=== PATIENT | female | born 1930 | race Caucasian/White ===

== ENCOUNTER → 2016-06-03 | Outpatient (CLI) | payer BC ==
[~2016-06-03] MED LIST: ACET325T96 PO; ACET650S10 RE; ACET650S11 PR; AMLO-110 PO; AMOX500C3 PO; ASPI325T39 PO; ATOR-54 PO; ATV5X PO; B-COTAB18 PO; BISA10SU7 PR; CHOL1CAP57 PO; CYAN100020 PO; GUAI100S75 PO; IMD/2 PO; LEVO125T4 PO; LISI-461 PO; MAGN400T6 PO; MOML PO; ONDA4TAB9 PO; POTA-327 PO; SERT25TA PO; SODIENE PR; SULF800T23 PO; SYMIN160 INH; TPRSR100 PO; ZLF/50 PO
== END ==
LOC: C.LABFOXDH 13:00
PROVIDERS: ATTEND Internal Medicine
DX: F44.89 Other dissociative and conversion disorders (principal); N32.89 Other specified disorders of bladder

== ENCOUNTER 2016-06-05 14:06 | Emergency (ER) | payer BC ==
[~2016-06-05] VITALS: Ht 165.1 cm; Wt 86.5 kg
[~2016-06-05 14:06] MED LIST changes: -ACET650S10 RE; -ACET650S11 PR; -AMLO-110 PO; -AMOX500C3 PO; -ASPI325T39 PO; -ATV5X PO; -B-COTAB18 PO; -BISA10SU7 PR; -CHOL1CAP57 PO; -CYAN100020 PO; -IMD/2 PO; -LISI-461 PO; -MOML PO; -ONDA4TAB9 PO; -SODIENE PR; -SULF800T23 PO; -ZLF/50 PO
[2016-06-05 14:13] VITALS: TEMP 36.6; Ht 165.1 cm; Wt 86.5 kg
[2016-06-05 15:18] LABS: BASO % 0.5 %; BASO ABS # 0.06 K/uL (0-0.2); COMPLETE YES; EOS % 4.5 %; IG% 0.2 %; LYMPH % 5.3 %; LYMPH ABS # 0.65 K/uL (1.2-3.4); MEAN CELL VOLUME 83.3 fL (80-100); MEAN CORPUSCULAR HEMOGLOBIN 27.7 pg (25-34); MEAN CORPUSCULAR HGB CONC 33.2 g/dl (32-36); MEAN PLATELET VOLUME 10.7 fL (7.4-10.4); MONO % 9.5 %; PLATELET COUNT 272 K/uL (130-400); RED BLOOD COUNT 4.44 M/uL (4.2-5.4); WHITE BLOOD COUNT 12.18 K/uL (4.8-10.8)
[2016-06-05 15:33] LABS: URINE APPEARANCE CLEAR (CLEAR); URINE BILIRUBIN NEG (NEG); URINE COLOR DK YELLOW; URINE EPITHELIAL CELL AUTO 0-5 /lpf (0-5); URINE NITRITE POS (NEG); URINE SPECIFIC GRAVITY 1.023 (1.000-1.030); UROBILINOGEN NEG (NEG)
--- NOTE | 2016-06-05 15:34 | DIAGNOSTIC IMAGING REPORT ---
CT HEAD WITHOUT CONTRAST (CT) CLINICAL HISTORY: Head trauma. Increasing confusion. Unsteady gait. COMPARISON STUDY: 05/15/2016 TECHNIQUE: Axial CT of the brain is performed from the vertex to the skull base. IV contrast was not administered for this examination. CT DOSE: 601.98 mGy.cm FINDINGS: No intra or extra-axial mass lesions are visualized. There is no CT evidence of acute cortical infarction. There is no evidence of midline shift. There is no acute hemorrhage. No calvarial fractures are visualized. There are moderate white matter hypodensities likely on a small vessel basis. 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 There is no evidence of acute sinusitis. There are postsurgical changes within the cervical spine. IMPRESSION: No acute intracranial findings Electronically signed by: Dano Torres M.D. 06/05/2016 3:33 PM Dictated Date/Time: 06/05/2016 3:30 PM
[2016-06-05 15:35] LABS: MANUAL MICROSCOPIC REQUIRED? NO; REVIEW REQ? NO
[2016-06-05 15:38] LABS: BUN/CREATININE RATIO 19.5 (10-20); CALCIUM 9.3 mg/dl (8.5-10.1); CREATININE 0.83 mg/dl (0.60-1.20); POTASSIUM 4.2 mmol/L (3.5-5.1)
[2016-06-05] MEDS ORDERED: GUAI100S75 PO (16:30)
[2016-06-05] MEDS ORDERED: ZLF/50 PO (16:30)
[2016-06-05] MEDS ORDERED: ACET650S10 RE (16:30)
[2016-06-05] MEDS ORDERED: IMD/2 PO (16:30)
[2016-06-05] MEDS ORDERED: ATV5X PO (16:30)
[2016-06-05] MEDS ORDERED: ONDA4TAB9 PO (16:30)
--- NOTE | 2016-06-05 16:36 | EMERGENCY ROOM VISIT NOTE ---
ED Visit Note First contact with patient: 14:25 86-year-old female sent from local nursing facility was fully evaluated by Sanju Rivas PA-C. Please see his note. Multiple labs, imaging and urinalysis were obtained. Please see his note. The patient does appear to have a urinary tract infection. That will require treatment. I believe the patient is otherwise states return to the nursing facility. IMPRESSION: Urinary Tract Infection
[2016-06-05 17:18] VITALS: BP 144/74; PULSE 70; O2SAT 96
--- NOTE | 2016-06-05 18:44 | EMERGENCY ROOM VISIT NOTE ---
ED Visit Note First contact with patient: 14:25 Chief Complaint: Confusion and difficulty walking. History of Present Illness: Ms. Parrish is an 86-year-old white female who is brought into the ED from the [facility]. According to the paperwork sent by the nursing facility patient had increasing confusion and difficulty ambulating. There paperwork report fall on May 15 and again on June 04; she was seen after her May 15 fall in the ED and a CT scan was done and no other cranial abnormalities were noted. They report her symptoms of increasing confusion and difficulty ambulating has been increasing since her initial fall on May 15. No additional testing or studies were performed since that time. Currently patient is not sure why she was referred to the ED and only complains of intermittent dizziness when moving from the sitting to the standing position. She does not remember her fall from June 04, yesterday. She does not feel like she's been having any increasing confusion or difficulty ambulating. She denies headache, lightheadedness, visual changes, hearing changes, difficulty speaking, difficulty swallowing, difficulty coordinating body movements, neck pain, back pain, chest pain, palpitations, shortness of breath, abdominal pain, decreased appetite, nausea, vomiting, diarrhea, constipation, rectal bleeding, black/tarry stools, urinary symptoms, hematuria, extremity pain /weakness/numbness/tingling. Review of Systems: As noted above in history of present illness. All body systems were reviewed and found to be negative as noted above. Past Medical History: (1) Acute respiratory failure (2) Alcohol intoxication (3) Aortic Valve Disorder (4) COPD exacerbation (5) Diverticulitis (6) Frequent falls (7) Hypertension (8) Hypomagnesemia (9) Hypomagnesemia (10) Hypoxemia (11) Hypoxia (12) Syncopal episodes Current Medications: Medications Dose Route/Sig Max Daily Dose Days Date Category Dose Instructions Siltussin Sa (Guaifenesin) 100 Mg/5 Ml Syp 5 Ml PO Q4 PRN 06/05/16 Reported Imodium (Loperamide HCl) 2 Mg Cap 2 Mg PO Q4 PRN 06/05/16 Reported Ondansetron HCl (Ondansetron) 4 Mg Tab 4 Mg PO Q6 PRN 06/05/16 Reported Lorazepam 0.5 Mg Tab 0.5 Mg PO UD 06/05/16 Reported 1 HOUR PRIOR TO DENTIST APT. Tylenol (Acetaminophen) 650 Mg Supp 650 Mg RE Q4 PRN 06/05/16 Reported Sertraline HCl 50 Mg Tab 50 Mg PO DAILY 06/05/16 Reported Amoxil (Amoxicillin) 500 Mg Cap 2,000 Mg PO UD PRN 05/15/16 Reported TAKE 4 CAPSULES (2000 MG) ONE HOUR PRIOR TO DENTAL APPOINTMENT Fleet Enema (Sodium Phosphate/Biphosphate) [place] 1 Ea [place] UD PRN 05/15/16 Reported NEEDED EVERY 3 DAYS FOR NO BOWEL MOVEMENT AND NO RESULTS FROM MOM OR DULCOLAX SUPPOSITORY Milk Of Magnesia (Magnesium Hydroxide) 30 Ml Susp 30 Ml PO UD PRN 05/15/16 Reported NEEDED EVERY 2 DAYS FOR NO BOWEL MOVEMENT Bisac-Evac (Bisacodyl) 10 Mg Sup 10 Mg [place] UD PRN 05/15/16 Reported NEEDED IF NO RESULTS FROM MOM Tylenol Supp (Acetaminophen) 650 Mg Sup 650 Mg [place] Q4H PRN 05/15/16 Reported MAXIMUM 3 GM APAP/24 HOURS Vitamin B12 (Cyanocobalamin) 1,000 Mcg Tab 1,000 Mcg PO QAM 05/15/16 Reported Vitamin B Complex (B-Complex Vitamins) 1 Tab Tab 1 Tab PO QAM 05/15/16 Reported Zestril (Lisinopril) 10 Mg Tab 10 Mg PO QAM 05/15/16 Reported Norvasc (Amlodipine Besylate) 5 Mg Tab 5 Mg PO QAM 05/15/16 Reported Vitamin D3 (Cholecalciferol) 1,000 Unit Cap 1,000 Inter.unit PO QAM 05/15/16 Reported Aspirin Ec (Aspirin) 325 Mg Tab 325 Mg PO QAM 05/15/16 Reported Tylenol (Acetaminophen) 325 Mg Tab 650 Mg PO Q4H PRN 03/31/15 Reported MAXIMUM 3 GM APAP/24 HOURS Klor-Con (Potassium Chloride) 10 Meq Tabcr 10 Meq PO QAM 03/31/15 Reported Mag-Ox (Magnesium Oxide) 400 Mg Tab 400 Mg PO QAM 03/31/15 Reported Symbicort 160/4.5 Inhaler (Budesonide/Formoterol Fumarate) 120 Puffs/ Aero 2 Puffs INH QAM 02/03/14 Reported Toprol Xl (Metoprolol Succinate) 100 Mg Tabcr 100 Mg PO QAM 02/03/14 Reported Levothyroxine Sodium 125 Mcg Tab 125 Mcg PO QAM 02/03/14 Reported Lipitor (Atorvastatin) 20 Mg Tab 20 Mg PO QAM 06/26/13 Reported Allergies to Medications: Erythromycin, morphine, prednisone. Social History: Patient is not currently employed; she feels safe in her home environment; she denies tobacco and alcohol use. Physical Examination: Vital Signs: Date Time Temp Pulse Resp B/P Pulse Ox O2 Delivery O2 Flow Rate FiO2 06/05/16 16:15 67 18 110/59 95 Room Air 06/05/16 16:07 67 153/71 95 Room Air 70 147/68 67 110/59 06/05/16 14:13 36.6 57 18 94/45 94 Room Air GENERAL: 86-year-old female in no acute distress, nontoxic-appearing, afebrile and hemodynamically stable. NEUROLOGICAL: Awake, alert and oriented to person, place and time. Answering questions appropriately and following commands. Patient was able to ambulate with a supportive arm without difficulty. Good hand eye coordination. No focal motor or sensory deficits. Cranial nerves II through XII grossly intact. Negative pronator drift test. Able to spell and count backwards. Normal rapid on a medicine hands and fingers. She was unable to perform a heel caal test. Able to draw the face of a clock with the correct time. Able to understand and relate the meaning of complex sentences. SKIN: Warm, dry and pink. No soft tissue trauma noted. HEENT: Atraumatic and normocephalic. Skull: No bony deformity, depressions or tenderness. No raccoon's eyes or shepard signs. No drainage from the ears or the nostril; no hemotympanum. Face: No bony tenderness, swelling or ecchymosis. PERRLA. EOMI without nystagmus. Sclera white and conjunctiva pink. No malocclusion. No intraoral trauma. Airway patent. Speech clear and normal. Trachea midline. No jugular venous distention. BACK: No tenderness over the bony cervical, thoracic and lumbar spine. Full range of motion of the cervical spine. No CVA tenderness. THORAX: Lungs sounds are clear to auscultation and equal bilaterally with symmetrical chest wall. No wheezing, rales or rhonchi. No crepitus, tenderness , subcutaneous air or deformities noted. HEART: Regular rate and rhythm. No gallops, rubs or murmurs are appreciated. ABDOMEN: Flat, soft and nontender. Positive bowel sounds in all quadrants. No guarding, rigidity or organomegaly. EXTREMITIES: Moves all extremities well on command and with purpose. All distal neurovascular statuses are intact and equal bilaterally. No calf tenderness or cords. 4/5 muscle strength in flexion, extension, abduction and abduction of the shoulders and hips, flexion and extension of the elbows, wrists and knee, pronation and supination of the forearm and plantar flexion and dorsiflexion of the ankles. ED Course: Patient is assessed as noted above. Laboratory Testing: Test 06/05/16 00:00 06/05/16 14:55 Range/Units Urine Color DK YELLOW Urine Appearance CLEAR CLEAR Urine pH 6.0 4.5-7.5 Urine Specific [place] 1.023 1.000-1.030 Urine Protein NEG NEG Urine Glucose (UA) NEG NEG Urine Ketones TRACE NEG Urine Occult Blood NEG NEG Urine Nitrite POS NEG Urine Bilirubin NEG NEG Urine Urobilinogen NEG NEG Urine Leukocyte Esterase MODERATE NEG Urine WBC (Auto) >30 0-5 /hpf Urine RBC (Auto) 0-4 0-4 /hpf Urine Hyaline Casts (Auto) 5-10 0-5 /lpf Urine Epithelial Cells (Auto) 0-5 0-5 /lpf Urine Bacteria (Auto) 4+ NEG White Blood Count 12.18 4.8-10.8 K/uL Red Blood Count 4.44 4.2-5.4 M/uL Hemoglobin 12.3 12.0-16.0 g/dL Hematocrit 37.0 37-47 % Mean Corpuscular Volume 83.3 80-100 fL Mean Corpuscular Hemoglobin 27.7 25-34 pg Mean Corpuscular Hemoglobin Concent 33.2 32-36 g/dl Platelet Count 272 130-400 K/uL Mean Platelet Volume 10.7 7.4-10.4 fL Neutrophils (%) (Auto) 80.0 % Lymphocytes (%) (Auto) 5.3 % Monocytes (%) (Auto) 9.5 % Eosinophils (%) (Auto) 4.5 % Basophils (%) (Auto) 0.5 % Neutrophils # (Auto) 9.74 1.4-6.5 K/uL Lymphocytes # (Auto) 0.65 1.2-3.4 K/uL Monocytes # (Auto) 1.16 0.11-0.59 K/uL Eosinophils # (Auto) 0.55 0-0.5 K/uL Basophils # (Auto) 0.06 0-0.2 K/uL RDW Standard Deviation 47.8 36.4-46.3 fL RDW Coefficient of Variation 15.5 11.5-14.5 % Immature Granulocyte % (Auto) 0.2 % Immature Granulocyte # (Auto) 0.02 0.00-0.02 K/uL Sodium Level 139 136-145 mmol/L Potassium Level 4.2 3.5-5.1 mmol/L Chloride Level 103 98-107 mmol/L Carbon Dioxide Level 26 21-32 mmol/L Anion Gap 10.0 3-11 mmol/L Blood Urea Nitrogen 16 7-18 mg/dl Creatinine 0.83 0.60-1.20 mg/dl Est Creatinine Clear Calc Drug Dose 54.8 ml/min Estimated GFR () 75.1 Estimated GFR (Non- 64.8 BUN/Creatinine Ratio 19.5 10-20 Random Glucose 101 70-99 mg/dl Calcium Level 9.3 8.5-10.1 mg/dl Chemistry Specimen Hemolysis Urine Culture: Pending Head CT: Was reviewed by myself and read by the radiologist showing no acute intracranial abnormalities or skull fractures. EKG: Was read by myself and reviewed with Dr. Clayton; shows sinus bradycardia with a ventricular rate of 53 bpm. Normal axis, intervals and complexes. No acute ST changes indicating ischemia, injury or infarction. Compared to previous and no longer shows any ST-T segment or nonspecific T-wave abnormalities in the anterior and lateral leads. Patient was reassessed multiple times during her stay in the emergency department. Patient case was reviewed with Dr. Clayton; we agreed on diagnostic approach, treatment, disposition and plan. Patient was educated about tonight's findings and instructed on her treatment plan. Clinical Impression: Urinary tract infection. Decision-Making: Initially my differential diagnosis I considered stroke, acute coronary syndrome, urinary tract infection, metabolic abnormality, and other causes. Disposition: Patient discharged back to [facility]. Plan: Patient was prescribed Bactrim DS 2 times a day for 7 days. Was encouraged that the patient's medication list be reviewed because of her bradycardia and dizziness. Was encouraged that the patient increase clear fluids and use only walker or her wheelchair ambulation. Was encouraged that the patient should follow-up with her family doctor in the next 24-48 hours for recheck and culture results. It was encouraged the patient is brought back to the emergency department for worsening symptoms, fevers or any new/concerning symptoms
[2016-06-05] MEDS ORDERED: AMLO-110 PO (20:28)
[2016-06-05] MEDS ORDERED: CHOL1CAP57 PO (20:28)
[2016-06-05] MEDS ORDERED: LISI-461 PO (20:28)
[2016-06-05] MEDS ORDERED: ASPI325T39 PO (20:28)
[2016-06-05] MEDS ORDERED: B-COTAB18 PO (20:33)
[2016-06-05] MEDS ORDERED: BISA10SU7 PR (20:42)
[2016-06-05] MEDS ORDERED: ACET650S11 PR (20:42)
[2016-06-05] MEDS ORDERED: CYAN100020 PO (20:42)
[2016-06-05] MEDS ORDERED: MOML PO (20:42)
[2016-06-05] MEDS ORDERED: AMOX500C3 PO (20:46)
[2016-06-05] MEDS ORDERED: SODIENE PR (20:46)
--- NOTE | 2016-06-07 13:56 | Pharmacy Progress Note ---
ED Pharmacist Culture FollowUp Date of Service: Jun 07, 2016. Patient was sent home with a prescription for Bactrim DS 1 PO BID x 7 days, which should cover the Klebsiella Pneumoniae growing from the patient's URINE culture.
== END 2016-06-05 17:28 | disposition home or self-care (01) ==
LOC: C.EDB 14:08 → C.EDD 17:28
DX: N39.0 Urinary tract infection, site not specified (principal); I10 Essential (primary) hypertension; I35.8 Other nonrheumatic aortic valve disorders; J44.9 Chronic obstructive pulmonary disease, unspecified; K57.92 Diverticulitis of intestine, part unspecified, without perforation or abscess without bleeding; Z79.899 Other long term (current) drug therapy; Z88.5 Allergy status to narcotic agent; Z88.3 Allergy status to other anti-infective agents; Z88.8 Allergy status to other drugs, medicaments and biological substances

== ENCOUNTER → 2016-06-07 | Outpatient (CLI) | payer BC ==
[~2016-06-07] MED LIST changes: +ACET650S10 RE; +ACET650S11 PR; +AMLO-110 PO; +AMOX500C3 PO; +ASPI325T39 PO; +ATV5X PO; +B-COTAB18 PO; +BISA10SU7 PR; +CHOL1CAP57 PO; +CYAN100020 PO; +IMD/2 PO; +LISI-461 PO; +MOML PO; +ONDA4TAB9 PO; -SERT25TA PO; +SODIENE PR; +SULF800T23 PO; +ZLF/50 PO
[2016-06-07 10:30] LABS: BASO % 0.9 %; BASO ABS # 0.09 K/uL (0-0.2); COMPLETE YES; EOS % 6.8 %; HEMATOCRIT 36.8 % (37-47); IG% 0.3 %; LYMPH % 10.5 %; LYMPH ABS # 1.11 K/uL (1.2-3.4); MEAN CORPUSCULAR HEMOGLOBIN 28.1 pg (25-34); MEAN CORPUSCULAR HGB CONC 33.4 g/dl (32-36); MEAN PLATELET VOLUME 11.2 fL (7.4-10.4); NEUT % 72.5 %; PLATELET COUNT 234 K/uL (130-400); RED BLOOD COUNT 4.38 M/uL (4.2-5.4); WHITE BLOOD COUNT 10.56 K/uL (4.8-10.8)
[2016-06-07 10:38] LABS: BLOOD UREA NITROGEN 18 mg/dl (7-18); BUN/CREATININE RATIO 21.2 (10-20); CALCIUM 9.4 mg/dl (8.5-10.1); CARBON DIOXIDE 25 mmol/L (21-32); CHLORIDE 105 mmol/L (98-107); CREATININE 0.86 mg/dl (0.60-1.20); GLUCOSE 83 mg/dl (70-99); SODIUM 140 mmol/L (136-145)
== END | disposition home or self-care (01) ==
LOC: C.LABFOXDH 09:31
PROVIDERS: ATTEND Internal Medicine
DX: R41.0 Disorientation, unspecified (principal)

== ENCOUNTER 2016-06-08 19:37 | Emergency (ER) | payer BC ==
[~2016-06-08] VITALS: Ht 165.1 cm; Wt 82.7 kg
[~2016-06-08 19:37] MED LIST changes: -SULF800T23 PO
[2016-06-08 19:45] VITALS: TEMP 37; Ht 165.1 cm; Wt 82.7 kg
[2016-06-08] MEDS ORDERED: SULF800T23 PO (19:55)
--- NOTE | 2016-06-08 20:28 | EMERGENCY ROOM VISIT NOTE ---
History Report prepared by You: Balbir Durham Under the Supervision of: Dr. Balbir Burns M.D. First contact with patient: 20:16 Chief Complaint: FALL Stated Complaint: FALL/ HEAD LAC History of Present Illness The patient is a 86 year old female who presents to the Emergency Room with complaints of a fall occurring just [employer]. She states she lost her balance and hit her head against a desk, though she denies losing consciousness. She reports she was here a couple weeks ago also because of a fall. She admits to having neck pain which she notes is not new, and that her arms feel numb bilaterally which she notes began a couple days ago before the fall. She denies having any headache, nausea, vomiting, chest pain, shortness of breath, or abdominal pain. The patient notes she has had a UTI in the past. Source of History: patient, family Onset: just [employer] Position: other (global) Quality: other (fall) Timing: other (episode) Associated Symptoms: + neck pain, + numbness (in arms bilaterally ), No SOB , No abdominal pain, No chest pain, No headache, No nausea, No vomiting Review of Systems See HPI for pertinent positives & negatives. A total of 10 systems reviewed and were otherwise negative. Past Medical & Surgical Medical Problems: (1) Acute respiratory failure (2) Alcohol intoxication (3) Aortic Valve Disorder (4) COPD exacerbation (5) Diverticulitis (6) Frequent falls (7) Hypertension (8) Hypomagnesemia (9) Hypomagnesemia (10) Hypoxemia (11) Hypoxia (12) Syncopal episodes Old medical records were reviewed. Nurse's notes were reviewed and I agree with. Family History Patient reports no known family medical history. Social History Smoking Status: Former Smoker Alcohol Use: none, other Drug Use: none Marital Status: Housing Status: lives alone Occupation Status: retired Current/Historical Medications Scheduled Amlodipine (Norvasc), 5 MG PO QAM Aspirin (Aspirin Ec), 325 MG PO QAM Atorvastatin (Lipitor), 20 MG PO QAM B-Complex Vitamins (Vitamin B Complex), 1 TAB PO QAM Budesonide/Formoterol Fumarate (Symbicort 160/4.5 Inhaler), 2 PUFFS INH QAM Cholecalciferol (Vitamin D3), 1,000 INTER.UNIT PO QAM Cyanocobalamin (Vitamin B12), 1,000 MCG PO QAM Levothyroxine Sodium (Levothyroxine Sodium), 125 MCG PO QAM Lisinopril (Zestril), 10 MG PO QAM Lorazepam (Lorazepam), 0.5 MG PO UD Magnesium Oxide (Mag-Ox), 400 MG PO QAM Metoprolol Succinate (Toprol Xl), 100 MG PO QAM Potassium Ext Rel (Klor-Con), 10 MEQ PO QAM Sertraline HCl (Sertraline HCl), 50 MG PO DAILY Sulfa/Trimethoprim (Bactrim Ds 800MG/160MG), 1 TAB PO BID Scheduled PRN Acetaminophen (Tylenol Supp), 650 MG [place] Q4H PRN for Pain or Fever Acetaminophen (Tylenol), 650 MG RE Q4 PRN for Pain or Fever Acetaminophen Tab (Tylenol), 650 MG PO Q4H PRN for Pain or Fever Amoxicillin (Amoxil), 2,000 MG PO UD PRN for Pre Treat Bisacodyl (Bisac-Evac), 10 MG [place] UD PRN for Constipation Guaifenesin (Siltussin Sa), 5 ML PO Q4 PRN for Cough Magnesium Hydroxide (Milk Of Magnesia), 30 ML PO UD PRN for Constipation Ondansetron (Ondansetron HCl), 4 MG PO Q6 PRN for Nausea or Vomiting Sodium Phosphate/Biphosphate (Fleet Enema), 1 EA [place] UD PRN for Constipation Allergies Coded Allergies: Prednisone (Verified Allergy, Intermediate, Aseptic Necrosis, 06/08/16) Morphine (Verified Allergy, Mild, Confusion, 06/08/16) Erythromycin (Verified Allergy, Unknown, Nausea, 06/08/16) Physical Exam Vital Signs Date Time Temp Pulse Resp B/P Pulse Ox O2 Delivery O2 Flow Rate FiO2 06/08/16 23:40 76 17 165/93 95 06/08/16 22:00 69 18 128/57 95 Room Air 06/08/16 21:39 75 18 161/60 95 Room Air 06/08/16 19:47 65 06/08/16 19:45 37.0 64 17 129/76 96 Room Air Physical Exam General: Well developed well nourished in no acute distress, breathing comfortably on room air. Normal speech. Non-ill appearing, older female. Answers most questions appropriates but is forgetful at baseline. HEENT: Tiny contusion to posterior scalp; no active bleeding. Pupils are equal round and reactive to light. Extraocular movements are intact. Oropharynx is pink with moist mucous membranes. No swelling of the mouth lips or tongue. Neck: Supple with a midline trachea. No meningeal signs or stiffness, no JVD or bruits. No Stridor. Chest: Clear to auscultation bilaterally. No wheezes or rhonchi. No increased work of breathing. Heart: regular rate and rhythm. Abdomen: Soft nontender, nondistended without rebound guarding or rigidity. Extremities: No cyanosis clubbing or edema. No calf tenderness or assymetry Spine/Back. Non tender to palpation. No CVA tenderness Skin: Good turgor without rashes. Neurologic exam: Cranial nerves two through 12 are intact. Motor and sensation are intact and symmetrical throughout. She complains of her arms feeling numb however she has good application security specialist strength and is able to move the wrist. She does have trouble lifting the right arm secondary previous shoulder surgery. She seems moving the left arm okay. No problems with the feet or lower extremities. Medical Decision & Procedures ER Provider Diagnostic Interpretation: CT results as stated below per my review and radiologist interpretation: CT OF THE CERVICAL SPINE FINDINGS: The visualized portions of the lung apices reveal no evidence of pneumothorax. There is an old odontoid fracture. There are postsurgical changes the C1-2 level with posterior pedicle screws. No acute fractures are visualized. There is reversal the normal cervical lordosis. There is a new 3 mm anterior subluxation of C3 on C4. Given the new advanced facet joint arthropathy, this is likely arthritic. There are advanced multilevel degenerative changes. IMPRESSION: 1. No acute fractures identified. 2. 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 Reversal normal cervical lordosis 4. Advanced multilevel degenerative changes 5. 3 mm of anterior subluxation of C3 on C4. Although this was not present on the prior study a degenerative etiology is favored given the advanced facet joint arthropathy at this level Electronically signed by: Dano Torres M.D. 06/08/2016 9:43 PM Dictated Date/Time: 06/08/2016 9:38 PM Laboratory Results 06/08/16 20:47 Red Blood Count 4.34, Mean Corpuscular Volume 82.3, Mean Corpuscular Hemoglobin 28.8, Mean Corpuscular Hemoglobin Concent 35.0, Mean Platelet Volume 10.6, Neutrophils (%) (Auto) 79.0, Lymphocytes (%) (Auto) 7.1, Monocytes (%) (Auto) 9.1, Eosinophils (%) (Auto) 4.1, Basophils (%) (Auto) 0.5, Neutrophils # (Auto) 9.56, Lymphocytes # (Auto) 0.86, Monocytes # (Auto) 1.10, Eosinophils # (Auto) 0.50, Basophils # (Auto) 0.06 06/08/16 20:47 Test 06/08/16 20:40 06/08/16 20:47 06/08/16 20:52 Urine Color YELLOW Urine Appearance CLEAR (CLEAR) Urine pH 6.5 (4.5-7.5) Urine Specific [place] 1.012 (1.000-1.030) Urine Protein NEG (NEG) Urine Glucose (UA) NEG (NEG) Urine Ketones NEG (NEG) Urine Occult Blood NEG (NEG) Urine Nitrite NEG (NEG) Urine Bilirubin NEG (NEG) Urine Urobilinogen NEG (NEG) Urine Leukocyte Esterase SMALL (NEG) Urine WBC (Auto) 1-5 /hpf (0-5) Urine RBC (Auto) 0-4 /hpf (0-4) Urine Hyaline Casts (Auto) 1-5 /lpf (0-5) Urine Epithelial Cells (Auto) >30 /lpf (0-5) Urine Bacteria (Auto) 1+ (NEG) White Blood Count 12.11 K/uL (4.8-10.8) Red Blood Count 4.34 M/uL (4.2-5.4) Hemoglobin 12.5 g/dL (12.0-16.0) Hematocrit 35.7 % (37-47) Mean Corpuscular Volume 82.3 fL (80-100) Mean Corpuscular Hemoglobin 28.8 pg (25-34) Mean Corpuscular Hemoglobin Concent 35.0 g/dl (32-36) Platelet Count 244 K/uL (130-400) Mean Platelet Volume 10.6 fL (7.4-10.4) Neutrophils (%) (Auto) 79.0 % Lymphocytes (%) (Auto) 7.1 % Monocytes (%) (Auto) 9.1 % Eosinophils (%) (Auto) 4.1 % Basophils (%) (Auto) 0.5 % Neutrophils # (Auto) 9.56 K/uL (1.4-6.5) Lymphocytes # (Auto) 0.86 K/uL (1.2-3.4) Monocytes # (Auto) 1.10 K/uL (0.11-0.59) Eosinophils # (Auto) 0.50 K/uL (0-0.5) Basophils # (Auto) 0.06 K/uL (0-0.2) RDW Standard Deviation 47.6 fL (36.4-46.3) RDW Coefficient of Variation 15.8 % (11.5-14.5) Immature Granulocyte % (Auto) 0.2 % Immature Granulocyte # (Auto) 0.03 K/uL (0.00-0.02) Anion Gap 10.0 mmol/L (3-11) Est Creatinine Clear Calc Drug Dose 34.2 ml/min Estimated GFR () 43.6 Estimated GFR (Non- 37.6 BUN/Creatinine Ratio 20.5 (10-20) Calcium Level 9.6 mg/dl (8.5-10.1) Bedside Troponin I 0.020 ng/ml (0-0.045) Laboratory studies as stated above per my review. Medications Administered Medications (Trade) Dose Ordered Sig/Alexandru Route Start Time Stop Time Status Last Admin Dose Admin Sodium Chloride (Nss 500ml) 500 ml @ 500 mls/hr ONE ONCE IV 06/08/16 22:53 06/08/16 23:52 DC 06/08/16 22:53 500 MLS/HR ECG Indication: other (fall) Rate (beats per minute): 64 Rhythm: normal sinus Findings: no acute ischemic change, no ectopy Comparison ECG Date: June 05, 2016 Change: no significant change ED Course 2017: Past medical records reviewed. The patient was evaluated in room B3B, and a complete history and physical examination were performed. 2030: I spoke to the patient's daughter. She says that her mother has chronic numbness in her arms, and agrees to CT the neck. 2244: I reassessed the patient and she is resting comfortably. I talked to the nurse who notes she is in assisted living and it not supposed to get out of bed without assistance. 0: Upon reevaluation, the patient is hemodynamically stable. I discussed the results and treatment plan with the patient. She verbalized agreement of the treatment plan. The patient was discharged home. Medical Decision Differentials include intracranial hemorrhage, cervical spine injury, electrolyte or metabolic abnormality, and UTI. This patient comes in as described above. She comes in after suffering a mechanical fall. She is in assisted living and apparently not supposed to get out of bed without assistance and did she hit the back of her head. She is at her normal mental status at I talked to her daughter on the phone who is an emergency physician. She did not feel we needed another CAT scan of her head as she has had one 3 days ago. I did a CAT scan of her neck as she initially was complaining of some tingling in her arms. I talked to her daughter about this apparently this is chronic. she has a lot of short-term memory problems. she has no obvious deficits. I did a CAT scan and it shows no acute fracture, there are some degenerative changes. I think is unlikely related to her spinal cord. I do not think she'll be able tolerate the MRI. she has a hard time holding still for an EKG at this point. She has nothing to suggest acute coronary syndrome or arrhythmia. Her BUN and creatinine are mildly elevated and she may be mildly dehydrated. She received a 500 cc IV normal saline bolus while she was here. She is on antibiotics for urinary today her urine looks clean. She feels up to go home. She does not need any suturing for her head. She will be out of bed with assistance only rest and drink plenty fluids return if : worsening symptoms, any problems concerns. She was happy with plan discharge to home. Impression Primary Impression: Fall Additional Impressions: Closed head injury Mild dehydration Scribe Attestation The scribe's documentation has been prepared under my direction and personally reviewed by me in its entirety. I confirm that the note above accurately reflects all work, treatment, procedures, and medical decision making performed by me. Departure Information Dispostion Home / Self-Care Referrals Mathieu Stafford (PCP) Patient Instructions My [facility] Additional Instructions Rest. Drink plenty of fluids. Get out of bed with assistance only. Return if: Worsening symptoms, further falls, numbness weakness, fever chills, any new problems or concerns Follow-up with doctor tomorrow for recheck Problem Qualifiers
[2016-06-08 21:00] LABS: BASO % 0.5 %; BASO ABS # 0.06 K/uL (0-0.2); COMPLETE YES; EOS % 4.1 %; HEMATOCRIT 35.7 % (37-47); IG% 0.2 %; LYMPH % 7.1 %; LYMPH ABS # 0.86 K/uL (1.2-3.4); MEAN CELL VOLUME 82.3 fL (80-100); MEAN CORPUSCULAR HEMOGLOBIN 28.8 pg (25-34); MEAN PLATELET VOLUME 10.6 fL (7.4-10.4); MONO % 9.1 %; PLATELET COUNT 244 K/uL (130-400); RED BLOOD COUNT 4.34 M/uL (4.2-5.4); WHITE BLOOD COUNT 12.11 K/uL (4.8-10.8)
[2016-06-08 21:07] LABS: URINE APPEARANCE CLEAR (CLEAR); URINE BILIRUBIN NEG (NEG); URINE COLOR YELLOW; URINE EPITHELIAL CELL AUTO >30 /lpf (0-5); URINE NITRITE NEG (NEG); URINE PH 6.5 (4.5-7.5); URINE SPECIFIC GRAVITY 1.012 (1.000-1.030); UROBILINOGEN NEG (NEG)
[2016-06-08 21:09] LABS: MANUAL MICROSCOPIC REQUIRED? NO; REVIEW REQ? YES
[2016-06-08 21:18] LABS: BUN/CREATININE RATIO 20.5 (10-20); CALCIUM 9.6 mg/dl (8.5-10.1); POTASSIUM 4.6 mmol/L (3.5-5.1)
[2016-06-08 21:20] LABS: ZZUR CULT IF INDIC CLEAN CATCH YES
[2016-06-08 21:30] LABS: CREATININE 1.3 mg/dl (0.60-1.20)
--- NOTE | 2016-06-08 21:44 | DIAGNOSTIC IMAGING REPORT ---
CT OF THE CERVICAL SPINE CLINICAL HISTORY: Neck pain status post trauma COMPARISON STUDY: 02/04/2008 CT DOSE: 229.44 mGy.cm TECHNIQUE: CT scan of the cervical spine was performed from the skull base to the thoracic inlet. Images are reviewed in the axial, sagittal, and coronal planes. IV contrast was not administered for this examination. FINDINGS: The visualized portions of the lung apices reveal no evidence of pneumothorax. There is an old odontoid fracture. There are postsurgical changes the C1-2 level with posterior pedicle screws. No acute fractures are visualized. There is reversal the normal cervical lordosis. There is a new 3 mm anterior subluxation of C3 on C4. Given the new advanced facet joint arthropathy, this is likely arthritic. There are advanced multilevel degenerative changes. IMPRESSION: 1. No acute fractures identified. 2. 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 Reversal normal cervical lordosis 4. Advanced multilevel degenerative changes 5. 3 mm of anterior subluxation of C3 on C4. Although this was not present on the prior study a degenerative etiology is favored given the advanced facet joint arthropathy at this level Electronically signed by: Dano Torres M.D. 06/08/2016 9:43 PM Dictated Date/Time: 06/08/2016 9:38 PM
[2016-06-08] MEDS ORDERED: SODIUM CHLORIDE 0.9% 1000ML 500 ML IV STA (22:46)
[2016-06-08] MEDS ORDERED: SODIUM CHLORIDE 0.9% 500ML 500 ML IV ONE (22:53)
[2016-06-08 23:40] VITALS: BP 165/93; PULSE 76; O2SAT 95
== END 2016-06-08 23:48 | disposition home or self-care (01) ==
LOC: EDBD 19:37 → C.EDB 19:41
DX: S09.90XA Unspecified injury of head, initial encounter (principal); W19.XXXA Unspecified fall, initial encounter; E86.0 Dehydration; M54.2 Cervicalgia; I10 Essential (primary) hypertension; I35.8 Other nonrheumatic aortic valve disorders; J44.9 Chronic obstructive pulmonary disease, unspecified; K57.92 Diverticulitis of intestine, part unspecified, without perforation or abscess without bleeding; Z87.891 Personal history of nicotine dependence; Z79.82 Long term (current) use of aspirin; Z79.899 Other long term (current) drug therapy; Z88.5 Allergy status to narcotic agent; Z88.8 Allergy status to other drugs, medicaments and biological substances

== ENCOUNTER → 2016-07-03 | Outpatient (CLI) | payer BC ==
[~2016-07-03] MED LIST changes: -IMD/2 PO; +SULF800T23 PO
== END | disposition home or self-care (01) ==
LOC: C.LABFOXAC 10:12 → EDSTATUS 07-18 08:37
PROVIDERS: ATTEND Internal Medicine
DX: R35.0 Frequency of micturition (principal)

== ENCOUNTER → 2016-08-15 | Outpatient (CLI) | payer BC | LOC: C.LABFOXAC 08:31 | PROVIDERS: ATTEND Internal Medicine | DX: E03.9 Hypothyroidism, unspecified (principal) ==

== ENCOUNTER → 2016-11-13 | Outpatient (CLI) | payer BC ==
[~2016-11-13] MED LIST changes: -LEVO125T4 PO; +LEVO125T5 PO
[2016-11-13 10:07] LABS: HEMATOCRIT 35.2 % (37-47); MEAN CELL VOLUME 84.4 fL (80-100); MEAN CORPUSCULAR HEMOGLOBIN 28.5 pg (25-34); MEAN CORPUSCULAR HGB CONC 33.8 g/dl (32-36); MEAN PLATELET VOLUME 10.3 fL (7.4-10.4); PLATELET COUNT 219 K/uL (130-400); RED BLOOD COUNT 4.17 M/uL (4.2-5.4); WHITE BLOOD COUNT 9.22 K/uL (4.8-10.8)
[2016-11-13 10:15] LABS: CALCIUM 8.8 mg/dl (8.5-10.1)
[2016-11-13 10:21] LABS: BLOOD UREA NITROGEN 16 mg/dl (7-18); BUN/CREATININE RATIO 28.2 (10-20); CARBON DIOXIDE 30 mmol/L (21-32); CHLORIDE 100 mmol/L (98-107); CREATININE 0.57 mg/dl (0.60-1.20); GLUCOSE 78 mg/dl (70-99); POTASSIUM 4.2 mmol/L (3.5-5.1); SODIUM 136 mmol/L (136-145)
== END ==
LOC: C.LABFOXAC 09:13
PROVIDERS: ATTEND Internal Medicine
DX: I48.91 Unspecified atrial fibrillation (principal)

== ENCOUNTER → 2016-11-21 | Outpatient (CLI) | payer BC ==
[2016-11-21 15:21] LABS: MEAN CELL VOLUME 81.9 fL (80-100); MEAN CORPUSCULAR HEMOGLOBIN 28.1 pg (25-34); MEAN CORPUSCULAR HGB CONC 34.3 g/dl (32-36); MEAN PLATELET VOLUME 10.4 fL (7.4-10.4); PLATELET COUNT 253 K/uL (130-400); RED BLOOD COUNT 4.52 M/uL (4.2-5.4); WHITE BLOOD COUNT 11.16 K/uL (4.8-10.8)
[2016-11-21 15:35] LABS: ALT/SGPT 22 U/L (12-78); BLOOD UREA NITROGEN 14 mg/dl (7-18); BUN/CREATININE RATIO 19.7 (10-20); CARBON DIOXIDE 31 mmol/L (21-32); CHLORIDE 86 mmol/L (98-107); GLUCOSE 98 mg/dl (70-99); POTASSIUM 3.7 mmol/L (3.5-5.1); SODIUM 123 mmol/L (136-145)
[2016-11-21 15:38] LABS: ALB/GLOB RATIO 1.1 (0.9-2); ALKALINE PHOSPHATASE 76 U/L (45-117); AST/SGOT 24 U/L (15-37)
[2016-11-21 15:44] LABS: BASO % 0.3 %; BASO ABS # 0.03 K/uL (0-0.2); COMPLETE YES; EOS % 1.8 %; IG% 0.2 %; LYMPH % 8.1 %; MONO % 1.9 %; NEUT % 87.7 %
== END ==
LOC: C.LABFOXAC 14:55
PROVIDERS: ATTEND Internal Medicine
DX: R10.9 Unspecified abdominal pain (principal); E87.1 Hypo-osmolality and hyponatremia

== ENCOUNTER → 2016-11-21 | Outpatient (CLI) | payer BC ==
[~2016-11-21] MED LIST changes: +LEVO125T4 PO; -LEVO125T5 PO
[2016-11-21 20:05] LABS: URINE APPEARANCE CLOUDY (CLEAR); URINE BILIRUBIN NEG (NEG); URINE COLOR DK YELLOW; URINE EPITHELIAL CELL AUTO >30 /lpf (0-5); URINE NITRITE NEG (NEG); URINE SPECIFIC GRAVITY 1.017 (1.000-1.030); UROBILINOGEN NEG (NEG); ZZUR CULT IF INDIC CLEAN CATCH YES
[2016-11-21 20:06] LABS: MANUAL MICROSCOPIC REQUIRED? NO; REVIEW REQ? NO
== END | disposition home or self-care (01) ==
LOC: C.LABSPEC 17:30
PROVIDERS: ATTEND Internal Medicine
DX: R10.9 Unspecified abdominal pain (principal); E87.1 Hypo-osmolality and hyponatremia

== ENCOUNTER → 2016-11-22 | Outpatient (CLI) | payer BC ==
[2016-11-22 11:03] LABS: BLOOD UREA NITROGEN 14 mg/dl (7-18); BUN/CREATININE RATIO 31.1 (10-20); CALCIUM 8.8 mg/dl (8.5-10.1); CARBON DIOXIDE 30 mmol/L (21-32); CHLORIDE 86 mmol/L (98-107); CREATININE 0.45 mg/dl (0.60-1.20); GLUCOSE 87 mg/dl (70-99); POTASSIUM 3.9 mmol/L (3.5-5.1); SODIUM 122 mmol/L (136-145)
== END ==
LOC: C.LABFOXAC 09:26
PROVIDERS: ATTEND Internal Medicine
DX: E87.1 Hypo-osmolality and hyponatremia (principal)

== ENCOUNTER → 2016-11-23 | Outpatient (CLI) | payer BC ==
[2016-11-23 10:51] LABS: BLOOD UREA NITROGEN 15 mg/dl (7-18); BUN/CREATININE RATIO 30.8 (10-20); CALCIUM 8.9 mg/dl (8.5-10.1); CARBON DIOXIDE 32 mmol/L (21-32); CHLORIDE 87 mmol/L (98-107); CREATININE 0.48 mg/dl (0.60-1.20); GLUCOSE 85 mg/dl (70-99); POTASSIUM 4.1 mmol/L (3.5-5.1); SODIUM 124 mmol/L (136-145)
== END | disposition home or self-care (01) ==
LOC: C.LABFOXAC 08:58
PROVIDERS: ATTEND Internal Medicine
DX: E87.1 Hypo-osmolality and hyponatremia (principal)

== ENCOUNTER → 2016-11-24 | Outpatient (CLI) | payer BC ==
[2016-11-24 09:35] LABS: BLOOD UREA NITROGEN 13 mg/dl (7-18); BUN/CREATININE RATIO 32.9 (10-20); CALCIUM 9.1 mg/dl (8.5-10.1); CARBON DIOXIDE 29 mmol/L (21-32); CHLORIDE 88 mmol/L (98-107); CREATININE 0.38 mg/dl (0.60-1.20); GLUCOSE 86 mg/dl (70-99); POTASSIUM 3.7 mmol/L (3.5-5.1); SODIUM 124 mmol/L (136-145)
--- NOTE | 2016-11-28 10:52 | CODING QUERY NO DIAGNOSIS ---
TREATMENT RENDERED WITHOUT A DIAGNOSIS To promote full compliance with coding requirements relating to patient care, physician participation is requested in all cases of cold roll catcher uncertainty. Please assist us with providing a diagnosis/symptom for the test(s) below: A diagnosis/symptom was not documented on your Order. A valid diagnosis/symptom is required to bill all insurances. Please remember that we are unable to code a diagnosis of rule out, probable, possible, questionable, or suspected. Tests that require a diagnosis: DOS 11/24 * PRP DIAGNOSIS: Provider Signature: Date: Thank you Nidia Tracey Health Information Management Once completed, please kindly fax back to [phone] For questions please call [phone]
== END | disposition home or self-care (01) ==
LOC: C.LABFOXAC 08:06
PROVIDERS: ATTEND Internal Medicine
DX: E87.1 Hypo-osmolality and hyponatremia (principal)

== ENCOUNTER → 2016-11-27 | Outpatient (CLI) | payer BC ==
[2016-11-27 08:54] LABS: BLOOD UREA NITROGEN 11 mg/dl (7-18); CALCIUM 8.8 mg/dl (8.5-10.1); CARBON DIOXIDE 31 mmol/L (21-32); CHLORIDE 94 mmol/L (98-107); CREATININE 0.43 mg/dl (0.60-1.20); GLUCOSE 80 mg/dl (70-99); POTASSIUM 3.8 mmol/L (3.5-5.1); SODIUM 131 mmol/L (136-145)
== END | disposition home or self-care (01) ==
LOC: C.LABFOXAC 08:02
PROVIDERS: ATTEND Internal Medicine
DX: I10 Essential (primary) hypertension (principal); E87.0 Hyperosmolality and hypernatremia

== ENCOUNTER → 2016-12-04 | Outpatient (CLI) | payer BC ==
[2016-12-04 10:03] LABS: BLOOD UREA NITROGEN 18 mg/dl (7-18); BUN/CREATININE RATIO 36.9 (10-20); CALCIUM 9.4 mg/dl (8.5-10.1); CARBON DIOXIDE 32 mmol/L (21-32); CHLORIDE 95 mmol/L (98-107); CREATININE 0.49 mg/dl (0.60-1.20); GLUCOSE 87 mg/dl (70-99); POTASSIUM 4.1 mmol/L (3.5-5.1); SODIUM 132 mmol/L (136-145)
== END ==
LOC: C.LABFOXAC 09:24
PROVIDERS: ATTEND Internal Medicine
DX: E87.1 Hypo-osmolality and hyponatremia (principal)

== ENCOUNTER → 2016-12-26 | Outpatient (CLI) | payer BC ==
[2016-12-26 11:58] LABS: BASO % 0.4 %; BASO ABS # 0.04 K/uL (0-0.2); COMPLETE YES; EOS % 2.2 %; HEMATOCRIT 37.7 % (37-47); IG% 0.2 %; LYMPH % 7.6 %; LYMPH ABS # 0.85 K/uL (1.2-3.4); MEAN CELL VOLUME 84.7 fL (80-100); MEAN CORPUSCULAR HEMOGLOBIN 27.9 pg (25-34); MEAN CORPUSCULAR HGB CONC 32.9 g/dl (32-36); MEAN PLATELET VOLUME 10.3 fL (7.4-10.4); MONO % 7.8 %; NEUT % 81.8 %; PLATELET COUNT 268 K/uL (130-400); RED BLOOD COUNT 4.45 M/uL (4.2-5.4)
[2016-12-26 12:05] LABS: ALT/SGPT 20 U/L (12-78); BLOOD UREA NITROGEN 18 mg/dl (7-18); BUN/CREATININE RATIO 23.7 (10-20); CALCIUM 9.2 mg/dl (8.5-10.1); CARBON DIOXIDE 34 mmol/L (21-32); CHLORIDE 99 mmol/L (98-107); CREATININE 0.75 mg/dl (0.60-1.20); GLUCOSE 83 mg/dl (70-99); POTASSIUM 3.8 mmol/L (3.5-5.1); SODIUM 137 mmol/L (136-145)
[2016-12-26 12:08] LABS: ALB/GLOB RATIO 0.9 (0.9-2); ALKALINE PHOSPHATASE 69 U/L (45-117); AST/SGOT 21 U/L (15-37)
== END ==
LOC: C.LABFOXAC 11:36
PROVIDERS: ATTEND Internal Medicine
DX: I95.9 Hypotension, unspecified (principal)

== ENCOUNTER → 2016-12-27 | Outpatient (CLI) | payer BC ==
[2016-12-27 09:02] LABS: URINE APPEARANCE CLOUDY (CLEAR); URINE BILIRUBIN NEG (NEG); URINE COLOR DK YELLOW; URINE EPITHELIAL CELL AUTO >30 /lpf (0-5); URINE NITRITE NEG (NEG); URINE PH 7.5 (4.5-7.5); URINE SPECIFIC GRAVITY 1.016 (1.000-1.030); UROBILINOGEN NEG (NEG); ZZUR CULT IF INDIC CLEAN CATCH YES
[2016-12-27 09:03] LABS: MANUAL MICROSCOPIC REQUIRED? NO; REVIEW REQ? YES
== END ==
LOC: C.LABFOXAC 08:07
PROVIDERS: ATTEND Internal Medicine
DX: I95.0 Idiopathic hypotension (principal)

== ENCOUNTER → 2017-01-09 | Outpatient (CLI) | payer BC ==
[2017-01-09 11:40] LABS: HEMATOCRIT 36.1 % (37-47); MEAN CELL VOLUME 83.4 fL (80-100); MEAN CORPUSCULAR HEMOGLOBIN 27.5 pg (25-34); MEAN PLATELET VOLUME 9.7 fL (7.4-10.4); PLATELET COUNT 247 K/uL (130-400); RED BLOOD COUNT 4.33 M/uL (4.2-5.4); WHITE BLOOD COUNT 27.46 K/uL (4.8-10.8)
[2017-01-09 11:48] LABS: BLOOD UREA NITROGEN 9 mg/dl (7-18); BUN/CREATININE RATIO 22.2 (10-20); CALCIUM 8.4 mg/dl (8.5-10.1); CARBON DIOXIDE 32 mmol/L (21-32); CHLORIDE 99 mmol/L (98-107); CREATININE 0.41 mg/dl (0.60-1.20); GLUCOSE 82 mg/dl (70-99); POTASSIUM 3.2 mmol/L (3.5-5.1); SODIUM 136 mmol/L (136-145)
[2017-01-09 12:09] LABS: BASO % 0.1 %; BASO ABS # 0.03 K/uL (0-0.2); COMPLETE YES; EOS % 0.7 %; IG% 0.3 %; LYMPH % 1.7 %; LYMPH ABS # 0.46 K/uL (1.2-3.4); MONO % 4.4 %; NEUT % 92.8 %
== END ==
LOC: C.LABFOXAC 11:24
PROVIDERS: ATTEND Nurse Practitioner Family
DX: R53.83 Other fatigue (principal)

== ENCOUNTER → 2017-01-17 | Outpatient (CLI) | payer BC | LOC: C.LABFOXAC 13:16 | PROVIDERS: ATTEND Nurse Practitioner Family | DX: R19.7 Diarrhea, unspecified (principal) ==

== ENCOUNTER → 2017-01-19 | Outpatient (CLI) | payer BC ==
[2017-01-19 10:04] LABS: HEMATOCRIT 35.5 % (37-47); MEAN CELL VOLUME 86.4 fL (80-100); MEAN CORPUSCULAR HEMOGLOBIN 27.5 pg (25-34); MEAN CORPUSCULAR HGB CONC 31.8 g/dl (32-36); MEAN PLATELET VOLUME 10.2 fL (7.4-10.4); PLATELET COUNT 186 K/uL (130-400); RED BLOOD COUNT 4.11 M/uL (4.2-5.4); WHITE BLOOD COUNT 9.79 K/uL (4.8-10.8)
[2017-01-19 10:38] LABS: BLOOD UREA NITROGEN 16 mg/dl (7-18); BUN/CREATININE RATIO 39.9 (10-20); CALCIUM 8.2 mg/dl (8.5-10.1); CARBON DIOXIDE 33 mmol/L (21-32); CHLORIDE 101 mmol/L (98-107); CREATININE 0.41 mg/dl (0.60-1.20); GLUCOSE 84 mg/dl (70-99); POTASSIUM 2.9 mmol/L (3.5-5.1); SODIUM 139 mmol/L (136-145)
--- NOTE | 2017-01-25 15:49 | CODING QUERY NO DIAGNOSIS ---
TREATMENT RENDERED WITHOUT A DIAGNOSIS 32 To promote full compliance with coding requirements relating to patient care, physician participation is requested in all cases of fuel storage technician uncertainty. Please assist us with providing a diagnosis/symptom for the test(s) below: A diagnosis/symptom was not documented on your Order. A valid diagnosis/symptom is required to bill all insurances. Please remember that we are unable to code a diagnosis of rule out, probable, possible, questionable, or suspected. DOS 01/19/17 Tests that require a diagnosis: * PARTIAL RENAL PROFILE DIAGNOSIS: * CBC W/O DIFF DIAGNOSIS: Provider Signature: Date: Thank you Adrienne Wahl Health Information Management Once completed, please kindly fax back to [phone] For questions please call [phone]
== END ==
LOC: C.LABFOXAC 08:49
PROVIDERS: ATTEND Internal Medicine
DX: R19.7 Diarrhea, unspecified (principal)

== ENCOUNTER → 2017-01-30 | Outpatient (CLI) | payer BC ==
[2017-01-30 10:27] LABS: POTASSIUM 4.2 mmol/L (3.5-5.1)
[2017-01-30 10:47] LABS: THYROID STIMULATING HORMONE 3.95 uIu/ml (0.300-4.500)
== END | disposition home or self-care (01) ==
LOC: C.LABFOXAC 09:42
PROVIDERS: ATTEND Internal Medicine
DX: E87.6 Hypokalemia (principal)

== ENCOUNTER → 2017-02-04 | Outpatient (CLI) | payer BC ==
--- NOTE | 2017-02-14 10:37 | CODING QUERY NO DIAGNOSIS ---
: 1932 TREATMENT RENDERED WITHOUT A DIAGNOSIS To promote full compliance with coding requirements relating to patient care, physician participation is requested in all cases of egg sorter uncertainty. Please assist us with providing the following: Please provide the original, signed physician order for the following tests that were rendered on 02/04/17: CDIFF TOXIN B GENE Thank you Ximena [facility] [email or web address] Information Management Once completed, please kindly fax back to [phone] For questions please call [phone]
== END ==
LOC: C.LABFOXAC 10:13
PROVIDERS: ATTEND Internal Medicine
DX: R19.7 Diarrhea, unspecified (principal)

== ENCOUNTER → 2017-08-02 | Outpatient (CLI) | payer BC ==
[~2017-08-02] MED LIST changes: +ACET-1693 PO; -ACET325T96 PO; -LEVO125T4 PO; +LEVO125T5 PO
--- NOTE | 2017-08-07 10:40 | CODING QUERY NO DIAGNOSIS ---
: 1930 TREATMENT RENDERED WITHOUT A DIAGNOSIS To promote full compliance with coding requirements relating to patient care, physician participation is requested in all cases of teacher of the emotionally disturbed uncertainty. Please assist us with providing a diagnosis/symptom for the test(s) below: A diagnosis/symptom was not documented on your Order. A valid diagnosis/symptom is required to bill all insurances. Please remember that we are unable to code a diagnosis of rule out, probable, possible, questionable, or suspected. Tests that require a diagnosis: DOS: 08/02/17 * THYROID STIMULATING HORMONE DIAGNOSIS: Provider Signature: Date: Thank you Trupti Conrad Health Information Management Once completed, please kindly fax back to [phone] For questions please call [phone]
== END ==
LOC: C.LABFOXAC 07:52
PROVIDERS: ATTEND Nurse Practitioner Family
DX: E03.9 Hypothyroidism, unspecified (principal)